=== PATIENT | female | born 1990 | race Two or more races ===

== ENCOUNTER 2024-03-29 11:34 | Outpatient (CLI) | payer OTHER | END 2024-03-29 11:38 | disposition home or self-care (01) | LOC: PRENATAL 11:34 | PROVIDERS: ATTEND Obstetrics & Gynecology Maternal & Fetal Medicine | DX: O35.9XX0 Maternal care for (suspected) fetal abnormality and damage, unspecified, not applicable or unspecified (principal); O36.8130 Decreased fetal movements, third trimester, not applicable or unspecified; O35.3XX0 Maternal care for (suspected) damage to fetus from viral disease in mother, not applicable or unspecified; O44.03 Complete placenta previa NOS or without hemorrhage, third trimester; Z3A.32 32 weeks gestation of pregnancy ==

== ENCOUNTER 2024-04-19 08:22 | Outpatient (CLI) | payer OTHER | END 2024-04-19 08:23 | disposition home or self-care (01) | LOC: PRENATAL 08:22 | PROVIDERS: ATTEND Obstetrics & Gynecology Maternal & Fetal Medicine | DX: O26.843 Uterine size-date discrepancy, third trimester (principal); O36.8130 Decreased fetal movements, third trimester, not applicable or unspecified; Z3A.35 35 weeks gestation of pregnancy ==

== ENCOUNTER 2024-05-13 14:15 | Inpatient (IN) | payer OTHER ==
[~2024-05-13] VITALS: Ht 165.1 cm; Wt 78.5 kg
[2024-05-18] MEDS ORDERED: RINGERS SOLUTION,LACTATED 1,000 ML IV SCH (08:15)
[2024-05-18 08:21] LABS: HEMATOCRIT 31.8 % (36.0-45.00); HEMOGLOBIN 10.6 g/dL (12.0-15.00); MEAN CELL VOLUME 80.7 fL (80.00-100.00); MEAN CORPUSCULAR HEMOGLOBIN 26.9 pg (27.00-32.0); MEAN CORPUSCULAR HGB CONC 33.3 g/dl (32.0-36.0); PLATELET COUNT 164 K/uL (150-450); RED BLOOD COUNT 3.94 M/uL (4.00-6.00); RED CELL DISTRIBUTION WIDTH 18.5 % (11.5-14.5)
[2024-05-18 08:29] LABS: PH,URINE 6.5 (5.0-8.0); URINE APPEARANCE Clear; URINE BILIRRUBIN Negative (NEGATIVE); URINE BLOOD Negative; URINE COLOR Dark Yellow; URINE GLUCOSE Negative (NEGATIVE); URINE KETONE Trace (NEGATIVE); URINE LEUKOCYTE Trace; URINE NITRATE Negative
[2024-05-18 08:30] LABS: URINE BACTERIA 147.3 uL (0.0-1933); URINE EPITHELIAL CELLS 16.6 uL (0.0-38.8); URINE RBC 7.9 uL (0.0-20.8); URINE WBC 45.7 uL (0.0-23.2)
[2024-05-18 08:42] LABS: URINE PROTEIN 100 (NEGATIVE)
[2024-05-18 08:46] LABS: INR < 0.93; PARTIAL THROMBOPLASTIN TIME 28.3 SECONDS (22.0-34.0); PROTHROMBIN TIME 9.7 SECONDS (9.0-11.5)
[2024-05-18] MEDS ORDERED: HIERRO PO (08:47)
[2024-05-18] MEDS ORDERED: PRENATAL + DHA1 EAC1 PO (08:47)
[2024-05-18] MEDS ORDERED: LABETALOL HCL100 MG PO (08:49)
[2024-05-18] MEDS ORDERED: MISOPROSTOL 25 MCG/4 ML GEL.W.APPL ONE (08:50)
[2024-05-18] MEDS ORDERED: MISOPROSTOL 25 MCG/4 ML GEL.W.APPL VAG ONE (09:00)
[2024-05-18] MEDS ORDERED: OXYTOCIN 500 ML IV SCH (13:30)
[2024-05-18] MEDS ORDERED: OXYTOCIN 20 UNITS/1000ML RL PIGGYBAG IV ONE (15:44)
[2024-05-18] MEDS ORDERED: ERYTHROMYCIN BASE 1 GM TUBE OP ONE (15:44)
[2024-05-18] MEDS ORDERED: LIDOCAINE HCL 1% 10ML VIAL ONE (15:44)
[2024-05-18] MEDS ORDERED: CHLORHEXIDINE GLUCONATE 120 ML BOTTLE TOP ONE ×2 (15:44→18:30)
[2024-05-18] MEDS ORDERED: MORPHINE SULFATE 4 MG/ML CARTRIDGE IV ONE (15:45)
[2024-05-18] MEDS ORDERED: ERYTHROMYCIN BASE 1 GM TUBE OP NR (18:00)
[2024-05-18] MEDS ORDERED: IBUprofen 400 MG TABLET PO PRN (18:00)
[2024-05-18] MEDS ORDERED: LIDOCAINE HCL 1% 10ML VIAL PERCUT ONE (18:30)
[2024-05-18] MEDS ORDERED: OXYTOCIN 20 UNITS/1000ML RL PIGGYBAG IV SCH (18:30)
[2024-05-18 21:26] LABS: HEMATOCRIT 32.4 % (36.0-45.00); HEMOGLOBIN 10.9 g/dL (12.0-15.00); MEAN CELL VOLUME 80.1 fL (80.00-100.00); MEAN CORPUSCULAR HEMOGLOBIN 26.9 pg (27.00-32.0); MEAN CORPUSCULAR HGB CONC 33.6 g/dl (32.0-36.0); PLATELET COUNT 156 K/uL (150-450); RED BLOOD COUNT 4.05 M/uL (4.00-6.00); RED CELL DISTRIBUTION WIDTH 19.2 % (11.5-14.5)
[2024-05-19] MEDS ORDERED: PNV,CALCIUM 72/IRON/FOLIC ACID 1 TAB TABLET PO SCH (09:00)
[2024-05-19] MEDS ORDERED: LABETALOL HCL 100 MG TABLET PO SCH (17:00)
== END 2024-05-20 12:36 | disposition home or self-care (01) | DRG 807 ==
LOC: LDR 05-18 07:20 → OB/GYN 05-18 14:15
PROVIDERS: ADMIT Obstetrics & Gynecology; ATTEND Obstetrics & Gynecology
PROC: 10E0XZZ Delivery of Products of Conception, External Approach (ICD-10-PCS; principal; 2024-05-18)
PROC: 0UQG7ZZ Repair Vagina, Via Natural or Artificial Opening (ICD-10-PCS; 2024-05-18)
PROC: 0UQMXZZ Repair Vulva, External Approach (ICD-10-PCS; 2024-05-18)
PROC: 3E033VJ Introduction of Other Hormone into Peripheral Vein, Percutaneous Approach (ICD-10-PCS; 2024-05-18)
PROC: 3E0P7VZ Introduction of Hormone into Female Reproductive, Via Natural or Artificial Opening (ICD-10-PCS; 2024-05-18)
PROC: 4A1HXCZ Monitoring of Products of Conception, Cardiac Rate, External Approach (ICD-10-PCS; 2024-05-18)
DX: O70.0 First degree perineal laceration during delivery (principal); Z37.0 Single live birth; Z3A.39 39 weeks gestation of pregnancy; Z20.822 Contact with and (suspected) exposure to COVID-19